=== PATIENT | male | born 2000 | race Hispanic/Latino ===

== ENCOUNTER 2018-03-30 15:22 | Emergency (ER) | payer OTHER | END 2018-03-30 16:06 | disposition home or self-care (01) | LOC: M ED 15:22 | DX: B07.0 Plantar wart (principal) | CPT/HCPCS: 99282 ==

== ENCOUNTER 2018-09-15 20:49 | Emergency (ER) | payer OTHER ==
[~2018-09-15] VITALS: Ht 160 cm; Wt 57.3 kg
[2018-09-15] MEDS ORDERED: ADACEL/BOOSTRIX VACCINE (DIPHTH/PERTUSS/ACELL/TETANUS)0.5ML SYR (90715) IM ONE (22:30)
[2018-09-15] MEDS ORDERED: CEFA1TAB PO (22:32)
[2018-09-15 22:59] VITALS: BP 105/70
== END 2018-09-15 23:04 | disposition home or self-care (01) ==
LOC: M ED 20:49
DX: L03.114 Cellulitis of left upper limb (principal); W57.XXXA Bitten or stung by nonvenomous insect and other nonvenomous arthropods, initial encounter; X58.XXXA Exposure to other specified factors, initial encounter

== ENCOUNTER 2020-02-13 11:38 | Emergency (ER) | payer OTHER ==
[~2020-02-13] VITALS: Ht 157.5 cm; Wt 61.2 kg
[~2020-02-13 11:38] MED LIST: CEFA1TAB PO
[2020-02-13 11:41] VITALS: BP 125/79
[2020-02-13] MEDS ORDERED: BACIOIN5 OS (12:42)
== END 2020-02-13 12:54 | disposition home or self-care (01) ==
LOC: M ED 11:38
DX: S30.812A Abrasion of penis, initial encounter (principal); X50.1XXA Overexertion from prolonged static or awkward postures, initial encounter; Y93.55 Activity, bike riding; Y92.410 Unspecified street and highway as the place of occurrence of the external cause